=== PATIENT | male | born 1980 | race Caucasian/White ===

== ENCOUNTER 2021-08-08 12:42 | Emergency (ER) | payer BC, OTHER ==
[2021-08-08 13:01] VITALS: BP 147/95; PULSE 92
== END 2021-08-08 14:00 | disposition home or self-care (01) ==
LOC: JD.ED 12:42
DX: M77.8 Other enthesopathies, not elsewhere classified (principal); F17.210 Nicotine dependence, cigarettes, uncomplicated
CPT/HCPCS: 73630-26-RT; 73630-RT; 99283